=== PATIENT | male | born 1960 | race Caucasian/White ===

== ENCOUNTER 2020-02-28 20:23 | Emergency (ER) | payer OTHER ==
[2020-02-28] MEDS ORDERED: oxyCODONE TAB* 5 MG TAB PO ONE (20:35)
[2020-02-28] MEDS ORDERED: Ondansetron INJ* 2 MG/ML VIAL IV ONE (20:35)
[2020-02-28] MEDS ORDERED: NS 0.9% 1000 ML** 1,000 ML IV ONE (20:35)
[2020-02-28] MEDS ORDERED: Ketorolac INJ* 30 MG/ML 1 ML VIAL IV PUSH ONE (20:35)
--- NOTE | 2020-02-28 20:35 | ED ---
Back Pain - HPI Summary HPI Summary: 60 year old M presenting to [facility] via EMS with a chief complaint of left lower back pain that he describes as an ache which radiates to his front since approximately 1 hour ago. Patient reports vomiting in the ambulance. He states that he was sitting when his pain started. The patient rates the pain 10/10 in severity. Symptoms aggravated by nothing. Symptoms alleviated by nothing. Patient denies any fever, cough, or recent travel. He states that he is pre- diabetic and has high liver numbers. Medication list reviewed. Allergy list reviewed. - History of Current Complaint Stated Complaint: BACK PAIN PER EMS Time Seen by Provider: 02/28/20 20:28 Hx Obtained From: Patient Onset/Duration: Sudden Onset Onset/Duration: Started Hours Ago Timing: Constant Back Pain Location: Is Discrete @ - Left lower Severity Currently: Severe Pain Intensity: 10 Pain Scale Used: 0-10 Numeric Character: Aching Aggravating Symptom(s): Nothing Alleviating Symptom(s): Nothing Associated Signs And Symptoms: Positive: Negative - Cough, Other - Vomiting. Negative: Fever - Allergies/Home Medications Allergies/Adverse Reactions: Allergies Allergy/AdvReac Type Severity Reaction Status Date / Time No Known Allergies Allergy Verified 02/28/20 21:44 Home Medications: Home Medications Ondansetron ODT TAB* [Zofran 4 MG Odt TAB*] 8 mg PO Q6H PRN #12 tab.odt [Rx] metFORMIN* [Glucophage 500 MG TAB *] 500 mg PO BID 02/28/20 [History Confirmed 02/28/20] oxyCODONE TAB* [Roxycodone TAB 5 mg*] 10 mg PO Q4H PRN 4 Days #20 tab MDD 6 tabs 02/28/20 [Rx] PMH/Surg Hx/FS Hx/Imm Hx Endocrine/Hematology History: Denies: Hx Anticoagulant Therapy, Hx Diabetes - Pre-diabetic, Hx Thyroid Disease Cardiovascular History: Denies: Hx Hypertension, Hx Pacemaker/ICD Respiratory History: Denies: Hx Asthma, Hx Chronic Obstructive Pulmonary Disease (COPD) History: Denies: Hx Renal Disease Neurological History: Denies: Hx Dementia, Hx Seizures Psychiatric History: Denies: Hx Substance Abuse - Surgical History Surgical History: None Infectious Disease History: Denies: Hx Hepatitis, Hx Human Immunodeficiency Virus (HIV) - Family History Known Family History: Positive: Diabetes - Social History Alcohol Use: None Alcohol Amount: None since 8 months ago Substance Use Type: Reports: None Hx Tobacco Use: Yes Smoking Status (MU): Former Smoker Review of Systems Negative: Fever Negative: Cough Positive: Vomiting Positive: Other - Back pain All Other Systems Reviewed And Are Negative: Yes Physical Exam - Summary Physical Exam Summary: Appearance: Well-appearing, Well-nourished, lying in bed comfortably Skin: Warm, dry, no obvious rash Eyes: sclera anicteric, no conjunctival pallor HENT: mucous membranes moist, pharynx appears normal Neck: Supple, nontender Respiratory: Clear to auscultation, no signs of respiratory distress Cardiovascular: Normal S1, S2. No murmurs. Normal distal pulses in tibial and radial bilaterally. Abdomen: Soft, nontender, normal active bowel sounds present Musculoskeletal: Normal, Strength/ROM Intact Neurological: A&Ox3, awake and alert, mentation is normal, speech is fluent and appropriate Psychiatric: affect is normal, does not appear anxious or depressed Triage Information Reviewed: Yes Vital Signs Reviewed: Yes Procedures - Sedation Patient Received Moderate/Deep Sedation with Procedure: No Diagnostics - Laboratory Result Diagrams: 02/28/20 20:58 02/28/20 20:58 Lab Statement: Any lab studies that have been ordered have been reviewed, and results considered in the medical decision making process. - CT Abdomen/Pelvis CT CT Interpretation Completed By: Radiologist Summary of CT Findings: 1. Mildly obstructing 4 mm calculus distal left UVJ. 2. Tiny hiatal hernia. 3. Left hydrocele. ED physician has reviewed this report. Back Pain Course/Dx - Course Course Of Treatment: 60 year old M presenting to [facility] via EMS with a chief complaint of left lower back pain that he describes as an ache which radiates to his front since approximately 1 hour ago. Patient reports vomiting in the ambulance. Physical exam findings without any abnormalities. Abdomen/Pelvis CT reveals, per radiologist, 1. Mildly obstructing 4 mm calculus distal left UVJ. 2. Tiny hiatal hernia. 3. Left hydrocele. Laboratory results with no significant abnormalities except for a Plt count of 142 and glucose of 122. In the ED course, the patient was given normal saline, oxycodone 10 mg, Toradol 10 mg, and Zofran 8 mg. Patient will be discharged with prescription for Zofran and Oxycodone and follow up from Dr. Irizarry. The patient is agreeable with this plan. - Diagnoses Provider Diagnoses: Renal colic Discharge ED - Sign-Out/Discharge Documenting (check all that apply): Patient Departure - Discharge Plan Condition: Improved Disposition: HOME Prescriptions: Ondansetron ODT TAB* [Zofran 4 MG Odt TAB*] 8 mg PO Q6H PRN #12 tab.odt PRN Reason: Nausea oxyCODONE TAB* [Roxycodone TAB 5 mg*] 10 mg PO Q4H PRN 4 Days #20 tab MDD 6 tabs PRN Reason: Pain - Severe Patient Education Materials: Renal Colic (ED) Referrals: Colt Irizarry MD [Medical Doctor] - Additional Instructions: Hopefully your stone will pass in the next couple of days, but if not it would be good to schedule in appointment with Dr. Irizarry for later in the week. It is small and has almost passed, so it is unlikely that it will require surgical intervention. For the pain, take 2 OTC naprosyn tabs twice daily as a baseline until it passes. You will likely need the oxycodone to supplement that to keep the pain under control. I have also prescribed zofran to help with the nausea. - Billing Disposition and Condition Condition: IMPROVED Disposition: Home - Attestation Statements Document Initiated by Thomas: Yes Documenting Scribe: Iwona Munoz Provider For Whom Thomas is Documenting (Include Credential): Jimy Patrick MD Scribe Attestation: IIwona scribed for Jimy Patrick MD on 02/28/20 at 2323. Scribe Documentation Reviewed: Yes Provider Attestation: The documentation as recorded by the Iwona ferguson accurately reflects the service I personally performed and the decisions made by me, Jimy Patrick MD Status of Scribe Document: Viewed
[2020-02-28 21:05] LABS: ABS Basophils 0.1 10^3/ul (0-0.2); ABS Eosinophils 0.1 10^3/ul (0-0.6); ABS Lymphocytes 1.5 10^3/ul (1.0-4.8); ABS Monocytes 0.5 10^3/ul (0-0.8); ABS Neutrophils 5.6 10^3/ul (1.5-7.7); Eosinophil % 1.3 %; Hematocrit 45 % (42-52); Mean Corpuscular HGB Conc 35 g/dL (31-36); Mean Corpuscular Hemoglobin 31 pg (27-31); Mean Corpuscular Volume 87 fL (80-94); Nucleated Red Blood Cells % 0.2; Red Blood Count 5.22 10^6 /uL (4.18-5.48); Red Cell Distribution Width 13 % (10-15); White Blood Count 7.8 10^3/uL (3.5-10.8)
[2020-02-28 21:16] LABS: Albumin 4.7 g/dL (3.2-5.2); Calcium 10.1 mg/dL (8.6-10.3); Potassium 3.6 mmol/L (3.5-5.0); Total Bilirubin 0.8 mg/dL (0.2-1.0)
[2020-02-28 21:22] LABS: Albumin/Globulin Ratio 1.6 (1-3); BUN/Creatinine Ratio 15.5 (8-20); C Reactive Protein 2.08 mg/L (<8.01); EGFR African American 77.4 (>60); Total Protein 7.7 g/dL (6.4-8.9)
[2020-02-28 21:29] LABS: Mean Platelet Volume 8.2 fL (7.4-10.4); Platelet Count 142 10^3/uL (150-450)
[2020-02-28 22:25] VITALS: BP 123/90
== END 2020-02-28 22:24 | disposition home or self-care (01) ==
LOC: ED 20:23
DX: N23 Unspecified renal colic (principal); M54.5 Low back pain; R11.10 Vomiting, unspecified; Z87.891 Personal history of nicotine dependence
CPT/HCPCS: 36415; 74176; 80053; 83690; 85025; 86140; 99283; A9270-GY